=== PATIENT | male | born 1945 | race Caucasian/White ===

== ENCOUNTER 2021-04-21 11:29 | Inpatient (IN) | payer OTHER, BC ==
[2021-04-21 11:36] VITALS: BMI 34.7
[2021-04-21] MEDS ORDERED: VANCOMYCIN 1 GM PREMIX - 1 GM/200 ML BAG IVPB ONE (13:09)
[2021-04-21] MEDS ORDERED: PIPERACILLIN/TAZOB 3.375 GM 3.375 GM in DEXTROSE 5%-WATER - 50 ML IVPB ONE (13:10)
[2021-04-21 13:40] LABS: EOS % 1.3 % (0-4.5); HEMATOCRIT 49.3 % (35.4-49); HEMOGLOBIN 17.2 GM/dL (11.7-16.9); LYMPH % 17.3 % (8-40); MCH 31.9 pg (25.7-33.7); MEAN CELL VOLUME 91.2 fl (80-96); MEAN PLT VOLUME 8.3 fl (7.5-11.1); MONO % 10.8 % (3.8-10.2); NEUT % 69.6 % (42.8-82.8); PLATELET COUNT 242 10^3/uL (134-434); RDW 14.2 % (11.9-15.9); WHITE BLOOD COUNT 8.6 K/mm3 (4.0-10.0)
[2021-04-21 13:46] LABS: INR 0.96 (0.83-1.09); PROTHROMBIN TIME (PATIENT) 10.7 SEC (9.7-13.0)
[2021-04-21 13:49] LABS: ACTIVATED PTT 29.7 SECONDS (25.2-36.5)
[2021-04-21] MEDS ORDERED: PIPERACILLIN/TAZOB 3.375 GM 3.375 GM/50 ML BAG IVPB ONE (13:57)
[2021-04-21] MEDS ORDERED: VANCOMYCIN 1 GRAM (PRE-DOCKED) 1,000 MG/250 ML BAG IVPB ONE (13:59)
[2021-04-21 14:04] LABS: CALCIUM 9.7 mg/dL (8.5-10.1)
[2021-04-21 14:05] LABS: ALBUMIN 3.7 g/dl (3.4-5.0); BLOOD UREA NITROGEN 46.4 mg/dL (7-18)
[2021-04-21 14:08] LABS: CREATININE 1.7 mg/dL (0.55-1.3)
[2021-04-21 14:09] LABS: BILIRUBIN,TOTAL 0.7 mg/dL (0.2-1); TOT PROT 8.4 g/dl (6.4-8.2)
[2021-04-21 16:00] LABS: ALBUMIN 3.3 g/dl (3.4-5.0); CALCIUM 8.8 mg/dL (8.5-10.1)
[2021-04-21 16:01] LABS: BLOOD UREA NITROGEN 44.1 mg/dL (7-18)
[2021-04-21 16:04] LABS: CREATININE 1.5 mg/dL (0.55-1.3)
[2021-04-21 16:05] LABS: BILIRUBIN,TOTAL 0.5 mg/dL (0.2-1)
[2021-04-21 16:06] LABS: TOT PROT 6.8 g/dl (6.4-8.2)
[2021-04-21] MEDS ORDERED: POTASSIUM CHLORIDE TABS 20 MEQ TABLET.ER (FP) PO ONE (16:11)
[2021-04-21] MEDS ORDERED: POTASSIUM CHLORIDE ORAL LIQUID 20 MEQ/15 ML PO ONE (16:32)
[2021-04-21] MEDS ORDERED: POTASSIUM CHLORIDE ORAL LIQUID 20 MEQ/15 ML ONE (16:47)
[2021-04-21] MEDS ORDERED: INSULIN SLIDING SCALE (NOVOLOG) 1 VIAL SQ ONE ×2 (17:01→17:02)
[2021-04-21] MEDS: INSULIN SLIDING SCALE (NOVOLOG) 1 VIAL SQ SCH ×2 (17:15→22:11)
[2021-04-21] MEDS ORDERED: SODIUM CHLORIDE 1,000 ML IV SCH (18:00)
[2021-04-21] MEDS ORDERED: PIPERACILLIN/TAZOB 3.375 GM 3.375 GM in DEXTROSE 5%-WATER - 50 ML IVPB SCH (18:00)
[2021-04-21] MEDS ORDERED: INSULIN (NOVOLOG) ASPART 100 UNITS/ML 10ML VIAL ONE (21:15)
[2021-04-21] MEDS ORDERED: DEXTROSE 5%-WATER - 50 ML IVPB ONE (21:16)
[2021-04-21] MEDS ORDERED: PIPERACILLIN/TAZOBACTAM 3.375 GM VIAL IVPB ONE (21:16)
[2021-04-21] MEDS: PIPERACILLIN/TAZOB 3.375 GM 3.375 GM in DEXTROSE 5%-WATER - 50 ML IVPB SCH (21:55)
[2021-04-21] MEDS: APIXABAN 5 MG TABLET PO SCH (21:57)
[2021-04-21] MEDS: METOPROLOL TARTRATE 50 MG TABLET (FP) PO SCH (21:57)
[2021-04-21] MEDS ORDERED: HEPARIN NA (PORCINE) 5,000 UNITS/ML 1ML VIAL SQ SCH (22:00)
[2021-04-22] MEDS ORDERED: VANCOMYCIN 1 GM in D5W (PRE-DOCKED) 1,000 MG/250 ML IVPB SCH (02:00)
[2021-04-22] MEDS ORDERED: DEXTROSE 5%-WATER - 50 ML IVPB ONE ×2 (02:52→09:41)
[2021-04-22] MEDS ORDERED: PIPERACILLIN/TAZOBACTAM 3.375 GM VIAL IVPB ONE ×2 (02:52→09:41)
[2021-04-22] MEDS: PIPERACILLIN/TAZOB 3.375 GM 3.375 GM in DEXTROSE 5%-WATER - 50 ML IVPB SCH ×2 (03:01→09:46)
[2021-04-22] MEDS: INSULIN SLIDING SCALE (NOVOLOG) 1 VIAL SQ SCH ×4 (06:59→21:33)
[2021-04-22] MEDS: FUROSEMIDE 40 MG/4 ML INJECTABLE VIAL IVPUSH SCH ×2 (07:00→13:39)
[2021-04-22 07:55] LABS: BASO % 0.5 % (0-2.0); HEMATOCRIT 40.3 % (35.4-49); HEMOGLOBIN 14.3 GM/dL (11.7-16.9); LYMPH % 22.1 % (8-40); MCH 32.1 pg (25.7-33.7); MCHC 35.6 g/dl (32.0-35.9); MEAN CELL VOLUME 90.1 fl (80-96); MEAN PLT VOLUME 7.7 fl (7.5-11.1); MONO % 12.5 % (3.8-10.2); NEUT % 62.9 % (42.8-82.8); PLATELET COUNT 213 10^3/uL (134-434); RBC 4.47 M/mm3 (4.00-5.60); RDW 14.1 % (11.9-15.9); WHITE BLOOD COUNT 8.8 K/mm3 (4.0-10.0)
[2021-04-22 08:17] LABS: CHLORIDE 90 mmol/L (98-107); SODIUM 135 mmol/L (136-145)
[2021-04-22 08:21] LABS: ALBUMIN 3.1 g/dl (3.4-5.0); CALCIUM 8.4 mg/dL (8.5-10.1); GLUCOSE,RANDOM 209 mg/dL (74-106); SGOT/AST 24 U/L (15-37); SGPT/ALT 37 U/L (13-61)
[2021-04-22 08:22] LABS: CO2 36 mmol/L (21-32); MAGNESIUM 2.7 mg/dL (1.8-2.4)
[2021-04-22 08:23] LABS: BILIRUBIN,TOTAL 0.6 mg/dL (0.2-1); TOT PROT 6.4 g/dl (6.4-8.2)
[2021-04-22 08:24] LABS: ALK PHOS 79 U/L (45-117); CREATININE 1.6 mg/dL (0.55-1.3); PHOSPHOROUS 2.4 mg/dL (2.5-4.9)
[2021-04-22 08:25] LABS: ANION GAP 9 MMOL/L (8-16)
[2021-04-22] MEDS ORDERED: PT OWN MED DRAWER 7, Y5N ONE ×2 (09:19→10:01)
[2021-04-22] MEDS: TAMSULOSIN HCL 0.4 MG CAP PO SCH (09:23)
[2021-04-22] MEDS: ALLOPURINOL 100 MG TABLET (FP) PO SCH (09:23)
[2021-04-22] MEDS: METOPROLOL TARTRATE 50 MG TABLET (FP) PO SCH ×2 (09:23→21:30)
[2021-04-22] MEDS: APIXABAN 5 MG TABLET PO SCH ×2 (09:23→21:30)
[2021-04-22] MEDS ORDERED: POTASSIUM CHLORIDE TABS 20 MEQ TABLET.ER (FP) PO ONE ×2 (09:30→15:00)
[2021-04-22] MEDS: METOLAZONE 5 MG TABLET PO SCH (10:16)
[2021-04-22] MEDS: KCL 10 MEQ IVPB 10 MEQ/100 ML INFUS.BAG IVPB SCH ×3 (10:16→17:02)
[2021-04-22] MEDS ORDERED: NAPH,MB-DB/K PH,MBDB POWDER PACKET PO ONE (12:25)
[2021-04-22] MEDS ORDERED: ceFAZolin SODIUM 1 GM VIAL ONE (17:38)
[2021-04-22] MEDS ORDERED: DEXTROSE 5%-WATER 100 ML IVPB ONE (17:38)
[2021-04-22] MEDS: CEFAZOLIN 1 GM in DEXTROSE 5%-WATER 100 ML IVPB SCH (18:13)
[2021-04-22 20:04] LABS: CALCIUM 8.4 mg/dL (8.5-10.1)
[2021-04-22 20:05] LABS: BLOOD UREA NITROGEN 33.6 mg/dL (7-18)
[2021-04-22 20:07] LABS: CREATININE 1.7 mg/dL (0.55-1.3)
[2021-04-23] MEDS ORDERED: DEXTROSE 5%-WATER 100 ML IVPB ONE ×3 (00:47→18:24)
[2021-04-23] MEDS ORDERED: ceFAZolin SODIUM 1 GM VIAL ONE ×3 (00:47→18:24)
[2021-04-23] MEDS: CEFAZOLIN 1 GM in DEXTROSE 5%-WATER 100 ML IVPB SCH ×3 (01:13→18:33)
[2021-04-23] MEDS: FUROSEMIDE 40 MG/4 ML INJECTABLE VIAL IVPUSH SCH ×2 (05:44→14:09)
[2021-04-23] MEDS: INSULIN SLIDING SCALE (NOVOLOG) 1 VIAL SQ SCH ×4 (06:11→21:51)
[2021-04-23 07:24] LABS: BASO % 0.8 % (0-2.0); EOS % 2.4 % (0-4.5); HEMATOCRIT 46.6 % (35.4-49); LYMPH % 22.4 % (8-40); MCH 31.6 pg (25.7-33.7); MCHC 34.3 g/dl (32.0-35.9); MEAN CELL VOLUME 92.1 fl (80-96); MEAN PLT VOLUME 7.5 fl (7.5-11.1); MONO % 10.8 % (3.8-10.2); NEUT % 63.6 % (42.8-82.8); PLATELET COUNT 216 10^3/uL (134-434); RBC 5.06 M/mm3 (4.00-5.60); RDW 14.2 % (11.9-15.9); WHITE BLOOD COUNT 8.5 K/mm3 (4.0-10.0)
[2021-04-23 07:46] LABS: CHLORIDE 94 mmol/L (98-107); SODIUM 135 mmol/L (136-145)
[2021-04-23 07:51] LABS: ALBUMIN 3.4 g/dl (3.4-5.0); BLOOD UREA NITROGEN 29.7 mg/dL (7-18); CALCIUM 8.8 mg/dL (8.5-10.1); CO2 34 mmol/L (21-32); GLUCOSE,RANDOM 174 mg/dL (74-106); MAGNESIUM 2.4 mg/dL (1.8-2.4)
[2021-04-23 07:54] LABS: CREATININE 1.6 mg/dL (0.55-1.3); PHOSPHOROUS 2.7 mg/dL (2.5-4.9); SGOT/AST 27 U/L (15-37); SGPT/ALT 42 U/L (13-61)
[2021-04-23 07:56] LABS: ALK PHOS 86 U/L (45-117); BILIRUBIN,TOTAL 0.6 mg/dL (0.2-1)
[2021-04-23 07:58] LABS: ANION GAP 7 MMOL/L (8-16)
[2021-04-23] MEDS ORDERED: POTASSIUM CHLORIDE TABS 20 MEQ TABLET.ER (FP) PO ONE (08:32)
[2021-04-23] MEDS: ALLOPURINOL 100 MG TABLET (FP) PO SCH (09:47)
[2021-04-23] MEDS: APIXABAN 5 MG TABLET PO SCH ×2 (09:47→21:51)
[2021-04-23] MEDS: METOPROLOL TARTRATE 50 MG TABLET (FP) PO SCH ×2 (09:47→21:51)
[2021-04-23] MEDS: TAMSULOSIN HCL 0.4 MG CAP PO SCH (09:47)
[2021-04-23] MEDS: KCL 10 MEQ IVPB 10 MEQ/100 ML INFUS.BAG IVPB SCH ×3 (09:48→14:10)
[2021-04-23] MEDS: METOLAZONE 5 MG TABLET PO SCH (13:30)
[2021-04-23 15:47] LABS: CALCIUM 9.1 mg/dL (8.5-10.1)
[2021-04-23 15:51] LABS: CREATININE 1.9 mg/dL (0.55-1.3)
[2021-04-23] MEDS ORDERED: PT OWN MED DRAWER 7, Y5N ONE (16:12)
[2021-04-24] MEDS ORDERED: DEXTROSE 5%-WATER 100 ML IVPB ONE ×3 (00:34→17:16)
[2021-04-24] MEDS ORDERED: ceFAZolin SODIUM 1 GM VIAL ONE ×3 (00:34→17:15)
[2021-04-24] MEDS: CEFAZOLIN 1 GM in DEXTROSE 5%-WATER 100 ML IVPB SCH ×3 (01:05→19:41)
[2021-04-24] MEDS: INSULIN SLIDING SCALE (NOVOLOG) 1 VIAL SQ SCH ×4 (06:29→21:17)
[2021-04-24 08:53] LABS: BASO % 1.7 % (0-2.0); EOS % 2.5 % (0-4.5); HEMATOCRIT 44.9 % (35.4-49); HEMOGLOBIN 15.9 GM/dL (11.7-16.9); LYMPH % 17.8 % (8-40); MCH 32.1 pg (25.7-33.7); MCHC 35.5 g/dl (32.0-35.9); MEAN CELL VOLUME 90.3 fl (80-96); MEAN PLT VOLUME 7.5 fl (7.5-11.1); MONO % 7.1 % (3.8-10.2); NEUT % 70.9 % (42.8-82.8); PLATELET COUNT 218 10^3/uL (134-434); RBC 4.97 M/mm3 (4.00-5.60); RDW 14.3 % (11.9-15.9); WHITE BLOOD COUNT 9.5 K/mm3 (4.0-10.0)
[2021-04-24 09:14] LABS: CALCIUM 8.7 mg/dL (8.5-10.1)
[2021-04-24 09:16] LABS: ALBUMIN 3.3 g/dl (3.4-5.0); BLOOD UREA NITROGEN 30.2 mg/dL (7-18); MAGNESIUM 2.5 mg/dL (1.8-2.4)
[2021-04-24 09:17] LABS: BILIRUBIN,TOTAL 0.5 mg/dL (0.2-1); CREATININE 1.6 mg/dL (0.55-1.3); TOT PROT 6.8 g/dl (6.4-8.2)
[2021-04-24 09:19] LABS: PHOSPHOROUS 3.1 mg/dL (2.5-4.9)
[2021-04-24] MEDS ORDERED: POTASSIUM CHLORIDE TABS 20 MEQ TABLET.ER (FP) PO ONE ×2 (09:35→17:55)
[2021-04-24] MEDS ORDERED: PT OWN MED DRAWER 7, Y5N ONE (11:03)
[2021-04-24] MEDS: TAMSULOSIN HCL 0.4 MG CAP PO SCH (11:13)
[2021-04-24] MEDS: ALLOPURINOL 100 MG TABLET (FP) PO SCH (11:13)
[2021-04-24] MEDS: APIXABAN 5 MG TABLET PO SCH ×2 (11:13→21:14)
[2021-04-24] MEDS: METOPROLOL TARTRATE 50 MG TABLET (FP) PO SCH ×2 (11:14→21:14)
[2021-04-24] MEDS: KCL 10 MEQ IVPB 10 MEQ/100 ML INFUS.BAG IVPB SCH ×3 (11:14→17:21)
[2021-04-24 16:30] LABS: CALCIUM 8.7 mg/dL (8.5-10.1)
[2021-04-24 16:33] LABS: CREATININE 1.8 mg/dL (0.55-1.3)
[2021-04-24] MEDS ORDERED: KCL 10 MEQ IVPB 10 MEQ/100 ML INFUS.BAG IVPB SCH (17:00)
[2021-04-25] MEDS ORDERED: DEXTROSE 5%-WATER 100 ML IVPB ONE ×3 (00:56→17:57)
[2021-04-25] MEDS ORDERED: ceFAZolin SODIUM 1 GM VIAL ONE ×3 (00:56→17:57)
[2021-04-25] MEDS: CEFAZOLIN 1 GM in DEXTROSE 5%-WATER 100 ML IVPB SCH ×3 (01:14→18:04)
[2021-04-25] MEDS: FUROSEMIDE 40 MG TABLET (FP) PO SCH ×2 (05:56→13:24)
[2021-04-25] MEDS: INSULIN SLIDING SCALE (NOVOLOG) 1 VIAL SQ SCH ×4 (06:02→21:06)
[2021-04-25] MEDS: TAMSULOSIN HCL 0.4 MG CAP PO SCH (08:50)
[2021-04-25 10:00] LABS: HEMATOCRIT 45.4 % (35.4-49); HEMOGLOBIN 15.6 GM/dL (11.7-16.9); MCHC 34.4 g/dl (32.0-35.9); MEAN CELL VOLUME 93.1 fl (80-96); MEAN PLT VOLUME 7.9 fl (7.5-11.1); PLATELET COUNT 218 10^3/uL (134-434); RBC 4.88 M/mm3 (4.00-5.60); RDW 14.2 % (11.9-15.9); WHITE BLOOD COUNT 7.7 K/mm3 (4.0-10.0)
[2021-04-25] MEDS: METOPROLOL TARTRATE 50 MG TABLET (FP) PO SCH ×2 (10:12→21:02)
[2021-04-25] MEDS: ALLOPURINOL 100 MG TABLET (FP) PO SCH (10:12)
[2021-04-25] MEDS: APIXABAN 5 MG TABLET PO SCH ×2 (10:12→21:02)
[2021-04-25 10:24] LABS: ALBUMIN 3.4 g/dl (3.4-5.0); CALCIUM 8.8 mg/dL (8.5-10.1)
[2021-04-25 10:28] LABS: CREATININE 1.5 mg/dL (0.55-1.3); MAGNESIUM 2.3 mg/dL (1.8-2.4); PHOSPHOROUS 2.8 mg/dL (2.5-4.9)
[2021-04-25 10:30] LABS: BILIRUBIN,TOTAL 0.6 mg/dL (0.2-1); TOT PROT 6.8 g/dl (6.4-8.2)
[2021-04-25 11:07] LABS: ANISOCYTOSIS 0; MACROCYTOSIS 0; PLATELET ESTIMATE NORMAL
[2021-04-25] MEDS ORDERED: INSULIN (NOVOLOG) ASPART 100 UNITS/ML 10ML VIAL ONE ×2 (11:28→20:53)
[2021-04-25] MEDS ORDERED: POTASSIUM CHLORIDE TABS 20 MEQ TABLET.ER (FP) PO ONE (12:32)
[2021-04-25] MEDS ORDERED: PT OWN MED DRAWER 7, Y5N ONE (16:48)
[2021-04-25] MEDS: METOLAZONE 5 MG TABLET PO SCH ×2 (16:53→16:54)
[2021-04-26] MEDS ORDERED: ceFAZolin SODIUM 1 GM VIAL ONE ×3 (00:57→16:52)
[2021-04-26] MEDS ORDERED: DEXTROSE 5%-WATER 100 ML IVPB ONE ×3 (00:57→16:52)
[2021-04-26] MEDS: CEFAZOLIN 1 GM in DEXTROSE 5%-WATER 100 ML IVPB SCH ×3 (01:10→17:07)
[2021-04-26] MEDS: FUROSEMIDE 40 MG TABLET (FP) PO SCH (05:44)
[2021-04-26] MEDS: INSULIN SLIDING SCALE (NOVOLOG) 1 VIAL SQ SCH ×4 (06:17→21:53)
[2021-04-26] MEDS: TAMSULOSIN HCL 0.4 MG CAP PO SCH (09:17)
[2021-04-26] MEDS: METOPROLOL TARTRATE 50 MG TABLET (FP) PO SCH ×2 (09:17→21:53)
[2021-04-26] MEDS: ALLOPURINOL 100 MG TABLET (FP) PO SCH (09:17)
[2021-04-26] MEDS: APIXABAN 5 MG TABLET PO SCH ×2 (09:17→21:53)
[2021-04-26 10:04] LABS: BASO % 0.6 % (0-2.0); EOS % 2.3 % (0-4.5); HEMATOCRIT 46.8 % (35.4-49); HEMOGLOBIN 16.5 GM/dL (11.7-16.9); LYMPH % 16.2 % (8-40); MCH 32.1 pg (25.7-33.7); MCHC 35.2 g/dl (32.0-35.9); MEAN CELL VOLUME 91.2 fl (80-96); MEAN PLT VOLUME 7.7 fl (7.5-11.1); MONO % 7.1 % (3.8-10.2); NEUT % 73.8 % (42.8-82.8); PLATELET COUNT 209 10^3/uL (134-434); RBC 5.13 M/mm3 (4.00-5.60); RDW 14.3 % (11.9-15.9); WHITE BLOOD COUNT 8.3 K/mm3 (4.0-10.0)
[2021-04-26 10:19] LABS: CHLORIDE 88 mmol/L (98-107); SODIUM 133 mmol/L (136-145)
[2021-04-26 10:25] LABS: ALBUMIN 3.6 g/dl (3.4-5.0); BLOOD UREA NITROGEN 31.4 mg/dL (7-18); CALCIUM 8.9 mg/dL (8.5-10.1); CO2 33 mmol/L (21-32)
[2021-04-26 10:26] LABS: GLUCOSE,RANDOM 272 mg/dL (74-106)
[2021-04-26 10:28] LABS: SGPT/ALT 38 U/L (13-61)
[2021-04-26 10:29] LABS: CREATININE 1.7 mg/dL (0.55-1.3); SGOT/AST 31 U/L (15-37)
[2021-04-26 10:30] LABS: BILIRUBIN,TOTAL 0.7 mg/dL (0.2-1); TOT PROT 7.3 g/dl (6.4-8.2)
[2021-04-26 10:31] LABS: ALK PHOS 95 U/L (45-117)
[2021-04-26 10:50] LABS: ANION GAP 11 MMOL/L (8-16)
[2021-04-26] MEDS: POTASSIUM CHLORIDE TABS 20 MEQ TABLET.ER (FP) PO SCH ×3 (11:51→22:54)
[2021-04-26] MEDS: KCL 10 MEQ IVPB 10 MEQ/100 ML INFUS.BAG IVPB SCH ×3 (11:51→14:11)
[2021-04-26] MEDS ORDERED: PT OWN MED DRAWER 7, Y5N ONE (13:12)
[2021-04-26] MEDS: METOLAZONE 5 MG TABLET PO SCH (13:14)
[2021-04-26] MEDS ORDERED: FUROSEMIDE 40 MG/4 ML INJECTABLE VIAL IVPUSH SCH (14:00)
[2021-04-27] MEDS ORDERED: ceFAZolin SODIUM 1 GM VIAL ONE ×3 (01:59→15:48)
[2021-04-27] MEDS ORDERED: DEXTROSE 5%-WATER 100 ML IVPB ONE ×2 (02:00→10:21)
[2021-04-27] MEDS: CEFAZOLIN 1 GM in DEXTROSE 5%-WATER 100 ML IVPB SCH ×2 (02:06→10:52)
[2021-04-27] MEDS: INSULIN SLIDING SCALE (NOVOLOG) 1 VIAL SQ SCH ×3 (06:25→21:38)
[2021-04-27 09:14] LABS: HEMATOCRIT 43.4 % (35.4-49); HEMOGLOBIN 15.5 GM/dL (11.7-16.9); MCH 32.2 pg (25.7-33.7); MCHC 35.7 g/dl (32.0-35.9); MEAN CELL VOLUME 90.3 fl (80-96); MEAN PLT VOLUME 7.5 fl (7.5-11.1); PLATELET COUNT 189 10^3/uL (134-434); RBC 4.81 M/mm3 (4.00-5.60); RDW 14.3 % (11.9-15.9)
[2021-04-27 09:56] LABS: ALBUMIN 3.2 g/dl (3.4-5.0); BLOOD UREA NITROGEN 32.2 mg/dL (7-18); MAGNESIUM 2.3 mg/dL (1.8-2.4)
[2021-04-27 09:59] LABS: CREATININE 1.6 mg/dL (0.55-1.3); PHOSPHOROUS 3.4 mg/dL (2.5-4.9)
[2021-04-27 10:00] LABS: BILIRUBIN,TOTAL 0.5 mg/dL (0.2-1); TOT PROT 6.7 g/dl (6.4-8.2)
[2021-04-27] MEDS ORDERED: METOLAZONE 5 MG TABLET PO SCH (10:00)
[2021-04-27] MEDS ORDERED: PT OWN MED DRAWER 7, Y5N ONE (10:20)
[2021-04-27] MEDS: TAMSULOSIN HCL 0.4 MG CAP PO SCH (10:51)
[2021-04-27] MEDS: APIXABAN 5 MG TABLET PO SCH ×2 (10:53→21:37)
[2021-04-27] MEDS: ALLOPURINOL 100 MG TABLET (FP) PO SCH (10:53)
[2021-04-27] MEDS: METOPROLOL TARTRATE 50 MG TABLET (FP) PO SCH ×2 (10:53→21:37)
[2021-04-27] MEDS ORDERED: POTASSIUM CHLORIDE TABS 20 MEQ TABLET.ER (FP) PO ONE (11:15)
[2021-04-27] MEDS ORDERED: POTASSIUM CHLORIDE ORAL LIQUID 20 MEQ/15 ML PO ONE (12:00)
[2021-04-27] MEDS ORDERED: HEPARIN NA (PORCINE) 5,000 UNITS/ML 1ML VIAL ONE (12:44)
[2021-04-27] MEDS ORDERED: LIDOCAINE HCL 1%, 10 MG/ML (20ML VIAL) ONE (12:45)
[2021-04-27] MEDS ORDERED: NITROGLYCERIN 50 MG/10 ML VIAL IVPB ONE (12:45)
[2021-04-27] MEDS ORDERED: TORSEMIDE 20 MG TABLET (FP) PO SCH (13:00)
[2021-04-27] MEDS ORDERED: MIDAZOLAM HCL 2 MG/2 ML SINGLE DOSE VIAL ONE ×2 (14:43→15:48)
[2021-04-27] MEDS ORDERED: PROPOFOL 20 ML ONE (14:43)
[2021-04-27] MEDS ORDERED: ceFAZolin SODIUM 1 GM VIAL IVPB ONE (15:50)
[2021-04-27] MEDS ORDERED: HEPARIN NA (PORCINE) 5,000 UNITS/ML 1ML VIAL SQ ONE (15:56)
[2021-04-27] MEDS ORDERED: LIDOCAINE HCL 1%, 10 MG/ML (20ML VIAL) NR ONE (15:56)
[2021-04-27] MEDS ORDERED: ONDANSETRON 4 MG/2 ML VIAL IVPUSH PRN ×2 (16:28→16:40)
[2021-04-27] MEDS ORDERED: LACTATED RINGERS SOLUTION 1,000 ML IV SCH (16:30)
[2021-04-27] MEDS: LACTATED RINGERS SOLUTION 1,000 ML IV SCH (18:04)
[2021-04-28] MEDS ORDERED: DEXTROSE 5%-WATER - 50 ML IVPB ONE ×4 (00:12→23:55)
[2021-04-28] MEDS ORDERED: ceFAZolin SODIUM 1 GM VIAL ONE ×4 (00:12→23:55)
[2021-04-28] MEDS: CEFAZOLIN 1 GM in DEXTROSE 5%-WATER - 50 ML IVPB SCH ×3 (00:25→17:01)
[2021-04-28] MEDS: INSULIN SLIDING SCALE (NOVOLOG) 1 VIAL SQ SCH ×4 (06:06→22:27)
[2021-04-28] MEDS: LACTATED RINGERS SOLUTION 1,000 ML IV SCH ×2 (06:40→22:26)
[2021-04-28 08:38] LABS: BASO % 0.7 % (0-2.0); EOS % 2.7 % (0-4.5); HEMATOCRIT 42.7 % (35.4-49); HEMOGLOBIN 14.8 GM/dL (11.7-16.9); LYMPH % 21.7 % (8-40); MCH 32.3 pg (25.7-33.7); MCHC 34.7 g/dl (32.0-35.9); MEAN CELL VOLUME 93.3 fl (80-96); MEAN PLT VOLUME 7.7 fl (7.5-11.1); MONO % 9.3 % (3.8-10.2); NEUT % 65.6 % (42.8-82.8); PLATELET COUNT 189 10^3/uL (134-434); RBC 4.57 M/mm3 (4.00-5.60); RDW 14.4 % (11.9-15.9); WHITE BLOOD COUNT 6.9 K/mm3 (4.0-10.0)
[2021-04-28 09:07] LABS: BLOOD UREA NITROGEN 27.4 mg/dL (7-18)
[2021-04-28 09:09] LABS: CALCIUM 8.7 mg/dL (8.5-10.1)
[2021-04-28 09:10] LABS: ALBUMIN 3.2 g/dl (3.4-5.0); MAGNESIUM 2.2 mg/dL (1.8-2.4)
[2021-04-28 09:13] LABS: BILIRUBIN,TOTAL 0.6 mg/dL (0.2-1); CREATININE 1.5 mg/dL (0.55-1.3); PHOSPHOROUS 3.2 mg/dL (2.5-4.9); TOT PROT 6.3 g/dl (6.4-8.2)
[2021-04-28] MEDS ORDERED: PT OWN MED DRAWER 7, Y5N ONE (09:17)
[2021-04-28] MEDS: TAMSULOSIN HCL 0.4 MG CAP PO SCH (09:19)
[2021-04-28] MEDS: ALLOPURINOL 100 MG TABLET (FP) PO SCH (09:20)
[2021-04-28] MEDS: METOLAZONE 5 MG TABLET PO SCH (09:20)
[2021-04-28] MEDS: TORSEMIDE 20 MG TABLET (FP) PO SCH (09:20)
[2021-04-28] MEDS: APIXABAN 5 MG TABLET PO SCH ×2 (09:20→22:27)
[2021-04-28] MEDS: METOPROLOL TARTRATE 50 MG TABLET (FP) PO SCH ×2 (09:20→22:31)
[2021-04-28] MEDS ORDERED: POTASSIUM CHLORIDE TABS 20 MEQ TABLET.ER (FP) PO ONE (10:00)
[2021-04-29] MEDS: CEFAZOLIN 1 GM in DEXTROSE 5%-WATER - 50 ML IVPB SCH ×4 (00:02→23:44)
[2021-04-29] MEDS: INSULIN SLIDING SCALE (NOVOLOG) 1 VIAL SQ SCH ×5 (06:08→21:29)
[2021-04-29 08:58] LABS: BASO % 0.7 % (0-2.0); EOS % 2.5 % (0-4.5); HEMATOCRIT 44.2 % (35.4-49); HEMOGLOBIN 15.1 GM/dL (11.7-16.9); LYMPH % 19.2 % (8-40); MCH 31.8 pg (25.7-33.7); MCHC 34.3 g/dl (32.0-35.9); MEAN CELL VOLUME 92.6 fl (80-96); MEAN PLT VOLUME 7.8 fl (7.5-11.1); MONO % 9.4 % (3.8-10.2); NEUT % 68.2 % (42.8-82.8); PLATELET COUNT 167 10^3/uL (134-434); RBC 4.77 M/mm3 (4.00-5.60); RDW 14.1 % (11.9-15.9); WHITE BLOOD COUNT 7.2 K/mm3 (4.0-10.0)
[2021-04-29] MEDS ORDERED: ceFAZolin SODIUM 1 GM VIAL ONE ×3 (09:01→23:42)
[2021-04-29] MEDS ORDERED: PT OWN MED DRAWER 7, Y5N ONE (09:01)
[2021-04-29] MEDS ORDERED: DEXTROSE 5%-WATER - 50 ML IVPB ONE ×3 (09:02→23:42)
[2021-04-29] MEDS: ALLOPURINOL 100 MG TABLET (FP) PO SCH (09:08)
[2021-04-29] MEDS: APIXABAN 5 MG TABLET PO SCH ×2 (09:08→21:28)
[2021-04-29] MEDS: TAMSULOSIN HCL 0.4 MG CAP PO SCH (09:08)
[2021-04-29] MEDS: METOPROLOL TARTRATE 50 MG TABLET (FP) PO SCH ×2 (09:08→21:29)
[2021-04-29] MEDS: POTASSIUM CHLORIDE TABS 20 MEQ TABLET.ER (FP) PO SCH (09:08)
[2021-04-29] MEDS: TORSEMIDE 20 MG TABLET (FP) PO SCH (09:08)
[2021-04-29] MEDS: METOLAZONE 5 MG TABLET PO SCH (09:09)
[2021-04-29 09:19] LABS: ALBUMIN 3.3 g/dl (3.4-5.0)
[2021-04-29 09:20] LABS: BLOOD UREA NITROGEN 22.9 mg/dL (7-18); CALCIUM 9.2 mg/dL (8.5-10.1); MAGNESIUM 2.3 mg/dL (1.8-2.4)
[2021-04-29 09:23] LABS: CREATININE 1.3 mg/dL (0.55-1.3)
[2021-04-29 09:24] LABS: PHOSPHOROUS 3.1 mg/dL (2.5-4.9)
[2021-04-29 09:25] LABS: BILIRUBIN,TOTAL 0.5 mg/dL (0.2-1); TOT PROT 6.7 g/dl (6.4-8.2)
[2021-04-29] MEDS ORDERED: INSULIN (NOVOLOG) ASPART 100 UNITS/ML 10ML VIAL ONE (21:21)
[2021-04-30] MEDS: INSULIN SLIDING SCALE (NOVOLOG) 1 VIAL SQ SCH ×4 (06:17→22:11)
[2021-04-30] MEDS ORDERED: ceFAZolin SODIUM 1 GM VIAL ONE ×2 (09:17→17:17)
[2021-04-30] MEDS ORDERED: PT OWN MED DRAWER 7, Y5N ONE (09:17)
[2021-04-30] MEDS ORDERED: DEXTROSE 5%-WATER - 50 ML IVPB ONE ×2 (09:17→17:17)
[2021-04-30] MEDS: CEFAZOLIN 1 GM in DEXTROSE 5%-WATER - 50 ML IVPB SCH ×2 (09:18→17:18)
[2021-04-30] MEDS: METOLAZONE 5 MG TABLET PO SCH (09:20)
[2021-04-30] MEDS: TORSEMIDE 20 MG TABLET (FP) PO SCH (09:21)
[2021-04-30] MEDS: ALLOPURINOL 100 MG TABLET (FP) PO SCH (09:21)
[2021-04-30] MEDS: POTASSIUM CHLORIDE TABS 20 MEQ TABLET.ER (FP) PO SCH (09:21)
[2021-04-30] MEDS: TAMSULOSIN HCL 0.4 MG CAP PO SCH (09:21)
[2021-04-30] MEDS: METOPROLOL TARTRATE 50 MG TABLET (FP) PO SCH ×2 (09:21→22:11)
[2021-04-30] MEDS: APIXABAN 5 MG TABLET PO SCH ×2 (09:21→22:11)
[2021-04-30 09:41] LABS: BASO % 0.8 % (0-2.0); HEMATOCRIT 44.2 % (35.4-49); HEMOGLOBIN 15.1 GM/dL (11.7-16.9); LYMPH % 15.3 % (8-40); MCH 31.9 pg (25.7-33.7); MCHC 34.2 g/dl (32.0-35.9); MEAN CELL VOLUME 93.1 fl (80-96); MEAN PLT VOLUME 7.8 fl (7.5-11.1); MONO % 7.7 % (3.8-10.2); NEUT % 74.2 % (42.8-82.8); PLATELET COUNT 202 10^3/uL (134-434); RBC 4.75 M/mm3 (4.00-5.60); RDW 14.6 % (11.9-15.9); WHITE BLOOD COUNT 6.8 K/mm3 (4.0-10.0)
[2021-04-30 10:04] LABS: BLOOD UREA NITROGEN 23.2 mg/dL (7-18); CALCIUM 9.3 mg/dL (8.5-10.1)
[2021-04-30 10:05] LABS: ALBUMIN 3.4 g/dl (3.4-5.0); MAGNESIUM 2.2 mg/dL (1.8-2.4)
[2021-04-30 10:08] LABS: CREATININE 1.4 mg/dL (0.55-1.3); PHOSPHOROUS 2.9 mg/dL (2.5-4.9)
[2021-04-30 10:09] LABS: BILIRUBIN,TOTAL 0.5 mg/dL (0.2-1); TOT PROT 6.7 g/dl (6.4-8.2)
[2021-05-01] MEDS ORDERED: DEXTROSE 5%-WATER - 50 ML IVPB ONE ×2 (00:24→08:35)
[2021-05-01] MEDS ORDERED: ceFAZolin SODIUM 1 GM VIAL ONE ×2 (00:24→08:35)
[2021-05-01] MEDS: CEFAZOLIN 1 GM in DEXTROSE 5%-WATER - 50 ML IVPB SCH ×2 (00:30→08:58)
[2021-05-01] MEDS: INSULIN SLIDING SCALE (NOVOLOG) 1 VIAL SQ SCH ×2 (06:11→11:51)
[2021-05-01] MEDS: TAMSULOSIN HCL 0.4 MG CAP PO SCH (08:59)
[2021-05-01] MEDS ORDERED: PT OWN MED DRAWER 7, Y5N ONE (09:29)
[2021-05-01] MEDS: APIXABAN 5 MG TABLET PO SCH (09:30)
[2021-05-01] MEDS: METOLAZONE 5 MG TABLET PO SCH (09:30)
[2021-05-01] MEDS: ALLOPURINOL 100 MG TABLET (FP) PO SCH (09:30)
[2021-05-01] MEDS: POTASSIUM CHLORIDE TABS 20 MEQ TABLET.ER (FP) PO SCH (09:30)
[2021-05-01] MEDS: TORSEMIDE 20 MG TABLET (FP) PO SCH (09:30)
[2021-05-01] MEDS: METOPROLOL TARTRATE 50 MG TABLET (FP) PO SCH (09:30)
[2021-05-01] MEDS ORDERED: COLLAGENASE CLOSTRIDIUM HIST. 30 GRAMS TUBE TP SCH (13:45)
[2021-05-01 14:13] VITALS: BP 143/83; PULSE 104; TEMP 97.3
== END 2021-05-01 17:34 | disposition home or self-care (01) | DRG 300 ==
LOC: JER 11:29 → JERBED 12:45 → J6S 18:24
PROVIDERS: ADMIT Internal Medicine; ATTEND Internal Medicine
PROC: B41GZZZ Fluoroscopy of Left Lower Extremity Arteries (ICD-10-PCS; 2021-04-27)
PROC: B41DZZZ Fluoroscopy of Aorta and Bilateral Lower Extremity Arteries (ICD-10-PCS; principal; 2021-04-27 15:00)
DX: E11.52 Type 2 diabetes mellitus with diabetic peripheral angiopathy with gangrene (principal); I13.0 Hypertensive heart and chronic kidney disease with heart failure and stage 1 through stage 4 chronic kidney disease, or unspecified chronic kidney disease; I50.22 Chronic systolic (congestive) heart failure; E87.1 Hypo-osmolality and hyponatremia; I96 Gangrene, not elsewhere classified; L03.116 Cellulitis of left lower limb; L97.909 Non-pressure chronic ulcer of unspecified part of unspecified lower leg with unspecified severity; N17.9 Acute kidney failure, unspecified; L97.528 Non-pressure chronic ulcer of other part of left foot with other specified severity; E78.5 Hyperlipidemia, unspecified; I48.91 Unspecified atrial fibrillation; Z95.1 Presence of aortocoronary bypass graft; E11.22 Type 2 diabetes mellitus with diabetic chronic kidney disease; N18.30 Chronic kidney disease, stage 3 unspecified; E87.6 Hypokalemia; E88.09 Other disorders of plasma-protein metabolism, not elsewhere classified; E87.8 Other disorders of electrolyte and fluid balance, not elsewhere classified; E11.621 Type 2 diabetes mellitus with foot ulcer; L60.2 Onychogryphosis
CPT/HCPCS: 36415; 71046-TC-FY; 73630-TC-LT; 73718-TC-LT; 80048; 80053; 82962; 83036; 83735; 84100; 84132; 85025; 85027; 85610; 85730; 86140; 87040; 93005; 93010; 93925-TC; 93971-TC; 94760; 99285-25; C9803; G0480; J1644; U0003; U0005